=== PATIENT | male | born 1945 | race Caucasian/White ===

== ENCOUNTER 2019-05-20 08:16 | Inpatient (IN) | payer OTHER ==
[2019-05-11 11:09] LABS: ABSOLUTE NEUTROPHILS 4.4 thou/uL (1.4-8.2); BASOPHILS 1.1 % (0.0-2.0); HEMATOCRIT 39.4 % (42.0-52.0); HEMOGLOBIN 13.2 gm/dL (14.0-18.0); LYMPHOCYTES 15.7 % (24.0-44.0); MCH 32.3 pg (26.0-34.0); MCHC 33.6 g/dL (28.0-37.0); MCV 96.2 fL (80.0-100.0); MONOCYTES 9.4 % (1.0-8.0); PLATELET COUNT 162 thou/uL (150-400); POLYS 69.8 % (36.0-66.0); RBC 4.09 mil/uL (4.50-6.00); RDW 14.6 % (10.5-14.5); URINE BILIRUBIN NEGATIVE (Negative); URINE BLOOD NEGATIVE (Negative); URINE CLARITY CLEAR; URINE COLOR YELLOW; URINE GLUCOSE-RANDOM* NEGATIVE (Negative); URINE KETONES NEGATIVE (Negative); URINE LEUKOCYTES-REFLEX NEGATIVE (Negative); URINE NITRITE-REFLEX NEGATIVE (Negative); URINE PROTEIN (DIPSTICK) NEGATIVE (Negative); URINE SPECIFIC GRAVITY 1.015 (1.005-1.035); URINE UROBILINOGEN 0.2 E.U./dl (0.2-1.0); WBC 6.3 thou/uL (4.0-11.0)
[2019-05-11 11:23] LABS: APTT 29.9 Seconds (24.5-32.8); INR 1.1; PROTIME 11.1 Seconds (9.3-11.4)
[2019-05-11 11:28] LABS: ALBUMIN 3.7 g/dL (3.4-5.0); CALCIUM 8.8 mg/dL (8.5-10.1); POTASSIUM 4.1 mmol/L (3.5-5.1); TOTAL BILIRUBIN 0.3 mg/dL (<0.1-1.0)
[2019-05-12 02:10] LABS: GLYCOHEMOGLOBIN (HGB A1C) 5.9 % (4.8-5.6)
[~2019-05-20] VITALS: Ht 171.7 cm; Wt 82.6 kg
[~2019-05-20 08:16] MED LIST: ACETAMINOPHEN325 M1 PO; ADULT LOW DOSE81 MG PO; ADVIL MIGRAINE200 M1 PO; ASPIR 8181 M1 PO; ASPIR 8181 MG PO; ASPIRIN EC325 M1 PO; ASPIRIN EC325 MG PO; ASPIRIN325 PO; ASPIRIN81 M2 PO; BRILINTA90 MG PO; CARVEDILOL3.125 MG PO; CARVEDILOL6.25 MG PO; COREG3.125 MG PO; COZAAR100 MG PO; CYCLOBENZAPRINE10 MG PO; DIOVAN160 MG PO; DYAZIDE 37.5-21 EACH PO; EFFIENT10 MG PO; FLOMAX0.4 MG PO; GLUCOSAMINE CO1 EACH PO; GLUCOSAMINE HC500 MG PO; GLUCOSAMINE-CH1 EA37 PO; GLUCOSAMINE1000 MG PO; IMDUR 30 MG TAB30 M1 PO; KEFLEX500 M1 PO; LIPITOR 20 MG T20 M1 PO; LOSARTAN POTAS100 MG PO; MAXZIDE-25 MG1 EACH; MAXZIDE-25 MG1 EACH PO; METFORMIN HCL500 MG PO; NITROGLYCERIN0.4 MG SUBLING; NITROQUICK0.4 MG SUBLING; NITROSTAT0.4 MG SUBLING; OMEPRAZOLE 20 M20 M1 PO; PLAVIX 75 MG TA75 M1 PO; PLAVIX 75 MG TA75 MG PO; PROSCAR 5MG TABL5 MG PO; SIMVASTATIN20 MG PO; TAMSULOSIN HCL0.4 M1 PO; TERBINAFINE HC250 MG PO; TRAMADOL 50 MG50 MG PO; TRIAMTERENE/HCT1 CA1 PO; TRIPLE FLEX CA1 EACH PO; VITAMIN B-12500 MCG PO; ZOCOR40 MG PO; ZOCOR80 MG PO
[2019-05-20] MEDS ORDERED: MAXZIDE-25 MG1 EACH PO (11:14)
[2019-05-20 11:15] VITALS: BP 110/68
[2019-05-20] MEDS ORDERED: TERBINAFINE HC250 MG (11:36)
[2019-05-20 12:42] LABS: HEMATOCRIT 37.6 % (42.0-52.0); HEMOGLOBIN 12.6 gm/dL (14.0-18.0); MCH 32.1 pg (26.0-34.0); MCHC 33.5 g/dL (28.0-37.0); MCV 95.7 fL (80.0-100.0); RBC 3.92 mil/uL (4.50-6.00); RDW 14.4 % (10.5-14.5); WBC 5.6 thou/uL (4.0-11.0)
[2019-05-20 12:49] LABS: CALCIUM 8.9 mg/dL (8.5-10.1); POTASSIUM 3.8 mmol/L (3.5-5.1)
[2019-05-20 15:45] VITALS: BP 102/62
--- NOTE | 2019-05-20 16:51 | NUR ---
ASSUMED CARE AT 0700, SHIFT ASSESSMENT DONE, MEDS GIVEN, VSS. DENIES PAIN, NAUSEA, VOMITING. UP AD VIOLET, ROOM AIR, NSR. ON NITRO AND INTEGRALIN DRIP. WILL CONTINUE TO ASSESS AND ASSIST WITH ADLs NEEDED.
[2019-05-20 20:00] VITALS: BP 95/57
[2019-05-20 20:17] VITALS: BP 95/57
[2019-05-21] VITALS (7 sets, daily range): BP systolic 94–109; BP diastolic 49–68
--- NOTE | 2019-05-21 04:57 | NUR ---
pt resting quietly in room thru the noc, spouse at bedside offering support, vss, integrillin and ntg gtts infusing, prn pain med given for c/o craig, will con't to monitor per ppoc.
[2019-05-21 06:06] LABS: HEMATOCRIT 36.3 % (42.0-52.0); HEMOGLOBIN 12.4 gm/dL (14.0-18.0); MCH 32.5 pg (26.0-34.0); MCHC 34.2 g/dL (28.0-37.0); MCV 95.2 fL (80.0-100.0); RBC 3.82 mil/uL (4.50-6.00); RDW 14.1 % (10.5-14.5); WBC 6.6 thou/uL (4.0-11.0)
[2019-05-21 06:16] LABS: CALCIUM 8.8 mg/dL (8.5-10.1); CREATININE 1.1 mg/dL (0.7-1.3); POTASSIUM 3.7 mmol/L (3.5-5.1)
--- NOTE | 2019-05-21 20:02 | NUR ---
ASSUMED CARE OF PATIENT AT 0700. ASSESSMENTS COMPLETED. PATIENT ON INTEGRILIN AND NITRO DRIPS CONTINUOUSLY. BLOOD SUGAR CHECKED AC&HS WITH OUT INSULIN COVERAGE NEEDED. PATIENT AMBULATING THE UNIT WITH HIS AND ANTICIPATING CABG ON WEDNESDAY. PATIENT TO CONTINUE WITH POC.
[2019-05-22] VITALS (9 sets, daily range): BP systolic 84–105; BP diastolic 50–63
--- NOTE | 2019-05-22 04:46 | NUR ---
ASSUME CARE 1899. PT/VITALS STABLE. INTERMITENT BACK AND CHEST PAIN RATED 3/10. UP AD VIOLET. ADEQUATE REST NOTED. SB WITH HR IN 40s AND 50s A;; NIGHT. PT ASSYMPTOMATIC. PROGRRESSING WELL WITH POC. PLAN IS CABG ON WEDNESDAY. PT ON INTEGRELIN AND NIRO DRIP. NITRO TITRATED PER BP AND TURNED OFF AT SOME POINT DUE TO LOW BP. WILL CONTINUE TO MONITOR AND FOLLOW WITH POC
--- NOTE | 2019-05-22 08:01 | NUR ---
0500: STATED CHEST PAIN. DENIES ANY TIGHTNESS OR SHORTNESS OF AIR. NITROGLYCERINE DRIP RESTARTRED AT 10ML/HR AFTER ENSURNG BP WAS NOT TOO LOW. PT PLACED ON 2LNC AND FURTHER BUMPED UP TO 3LNC DUE TO CONTINUOUS CHEST PAIN. PT STATES PAIN RADIATING TO JAWS. VITALS RECHECKED WITH SYTOLIC AT A 100. MAP AT 74. NITRO INCREASED TO 15ML/HR. INTEGRELIN DRIP RUNNING CONTINUOUSLY.MORPHINE 2MG GIVEN. PT STATES PAIN IS EASING OFF. ENCOURAED TO REPORT IF PAIN GETS WORSE OR DOESN'T STOP. REPORT PASSED TO DAY NURSE WITH ADVICE TO CONTINUE CHECKING ON BP AND TITRATING NTRO DRIP. PT SEEMS STABLE AT TIME OF SHIFT CHANGE REPORT AND STATED PAIN SEEMS TO BE "IN THE BACKGROUND NOW". WILL CONTINUE TO MONITOR AND FOLLOW WIIHT POC
--- NOTE | 2019-05-22 14:36 | NUR ---
met with patient and at bedside. 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 patient resides with in home all needs on one level. he has 1-2 steps to enter home. 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 Patient and both drive. PCP is Dr Linnea Ramírez from [facility]. [facility] following.
--- NOTE | 2019-05-22 17:48 | NUR ---
ASSUMED PT CARE AT APPROXIMATELY 0700. PT A&O X4. ASSESSMENT CHARTED. FALL PRECAUTIONS IN PLACE. PT HAS HAD INTERMITTENT CHEST PAIN AND AN INTERMITTENT HEADACHE DURING SHIFT. PT RECEIVED PRN ANALGESIC FOR HEADACHE. PT'S PAIN DECREASED AFTER ANALGESIC. PT ON A NITRO DRIP FOR CHEST PAIN. PT HAD INTERMITTENT HYPOTENSION DUE TO NITRO DRIP. INFORMED DR. AND HE ORDERED IV FLUIDS. PT'S BP IS STABLE SINCE STARTING IV FLUIDS. PT WAS NOT SYMPTOMATIC WHEN HAVING A LOW BP. PT NPO AT MIDNIGHT TONIGHT. PT WILL BE HAVING A CABG PROCEDURE TOMORROW. PT'S CONSENT FORMS SIGNED. PT DENIED HAVING QUESTIONS REGARDING CONSENT FORMS. AT BEDSIDE. FAMILY & FRIENDS VISITED PT. PT STABLE WITH O2 SAT, O2 NOT NEEDED AT THIS TIME. PT STEADY AND INDEPENDENT WHEN WALKING, ASSISTANCE NEEDED FOR IV POLE. PT VITALS CURRENTLY STABLE. PT'S BLOOD SUGAR STABLE.
[2019-05-23] VITALS (13 sets, daily range): BP systolic 85–135; BP diastolic 41–69
--- NOTE | 2019-05-23 04:24 | NUR ---
ASSESSMENT CHARTED. VSS. NITRO PER PROTOCOL. INTEGRILIN STOPPED PER ORDERS. X2 HIBA CLEANSE. PRE OP CHECKLIST. PLAN FOR OPEN HEART THIS AM. FAMILY AT BEDSIDE.
[2019-05-23 05:24] LABS: ABSOLUTE NEUTROPHILS 4.4 thou/uL (1.4-8.2); BASOPHILS 1.2 % (0.0-2.0); EOSINOPHILS 5.4 % (0.0-3.0); HEMATOCRIT 37.4 % (42.0-52.0); HEMOGLOBIN 12.6 gm/dL (14.0-18.0); LYMPHOCYTES 17.7 % (24.0-44.0); MCH 32.3 pg (26.0-34.0); MCHC 33.6 g/dL (28.0-37.0); MCV 96.1 fL (80.0-100.0); MONOCYTES 9.5 % (1.0-8.0); PLATELET COUNT 143 thou/uL (150-400); POLYS 66.2 % (36.0-66.0); RBC 3.89 mil/uL (4.50-6.00); RDW 14.5 % (10.5-14.5); WBC 6.6 thou/uL (4.0-11.0)
--- NOTE | 2019-05-23 07:23 | 2DMMODE ---
[facility] [address] [place] [address] 2 D/M-MODE ECHOCARDIOGRAM Name: DIANA MOREAU PASTORA Room #: 205-P ADM IN M.R.#: [id number] Admission: 05/20/19 Attend Phys: Rajendra Justin MD Discharge: Date of : 47 Date of Service: 05/23/19 0722 Report #: [id number] THIS REPORT FOR: //name// APPROVED REPORT Study performed: 05/22/2019 10:53:36 EXAM: Comprehensive 2D, Doppler, and color-flow Echocardiogram Patient Location: Bedside Room #: 205 Status: routine BSA: 1.89 HR: 57 bpm BP: 105/63 mmHg Rhythm: Bradycardia Other Information Study Quality: Adequate Indications Diabetes CAD Chest Pain Hypertension/HDD Pre-op CABG 2D Dimensions RVDd: 30.78 mm IVSd: 13.85 (7-11mm) LVOT Diam: 19.58 (18-24mm) LVDd: 37.49 mm PWd: 13.64 (7-11mm) Ascending Ao: 27.48 (22-36mm) LVDs: 24.34 (25-40mm) Aortic Root: 30.68 mm IVC: 16.00 mm Volumes Left Atrial Volume (Systole) Single Plane 4CH: 58.60 mL Single Plane 2CH: 53.34 mL LA ESV Index: 33.00 mL/m2 Aortic Valve AoV Peak Jose David.: 1.16 m/s AO Peak Gr.: 5.41 mmHg LVOT Max P.09 mmHg LVOT Max V: 0.88 m/s NIKKI Vmax: 2.28 cm2 [facility] [address] [address] 2 D/M-MODE ECHOCARDIOGRAM Name: DIANA MOREAU Room #: 205-P [facility] IN [facility].#: [id number] Admission: 05/20/19 Attend Phys: Rajendra Justin MD Discharge: Date of : 47 Date of Service: 05/23/19 0722 Report #: [id number] Mitral Valve E/A Ratio: 0.8 MV Decel. Time: 337.00 ms MV E Max Jose David.: 0.42 m/s MV A Jose David.: 0.56 m/s MV PHT: 97.73 ms IVRT: 133.79 ms Pulmonary Valve PV Peak Jose David.: 0.90 m/s PV Peak Gr.: 3.23 mmHg Pulmonary Vein P Vein S: 0.42 m/s P Vein A: 0.27 m/s P Vein D: 0.30 m/s P Vein A Dur.: 184.5 msec P Vein S/D Ratio: 1.40 Tricuspid Valve TR Peak Jose David.: 2.09 m/s TR Peak Gr.: 17.52 mmHg PA Pressure: 23.00 mmHg Left Ventricle The left ventricle is normal size. mild inferior hypokinesis Mild concentric left ventricular hypertrophy. The left ventricular systolic function is normal. The left ventricular ejection fraction is within the normal range. LVEF is 50-55%. Grade I - abnormal relaxation pattern. Right Ventricle The right ventricle is normal size. The right ventricular systolic function is normal. Atria Left atrium is mildly dilated. Right atrium is at the upper limits of normal. Aortic Valve The aortic valve is normal in structure. No aortic regurgitation is present. There is no aortic valvular stenosis. Mitral Valve The mitral valve is normal in structure. There is no mitral valve regurgitation noted. No evidence of mitral valve stenosis. Tricuspid Valve The tricuspid valve is normal in structure. There is trace to [facility] [address] [place] [address] 2 D/M-MODE ECHOCARDIOGRAM Name: DIANA MOREAU [place] Room #: [address] [place] [address] IN M.R.#: [id number] Admission: 05/20/19 Attend Phys: Rajendra Justin MD Discharge: Date of : 47 Date of Service: 05/23/19 0722 Report #: [id number] tricuspid regurgitation. Estimated PAP 23 mmHg. There is no pulmonary hypertension. Pulmonic Valve Pulmonic valve is not well visualized. There is no pulmonic valvular regurgitation. Great Vessels The aortic root is normal in size. IVC is normal in size and collapses >50% with inspiration. Pericardium There is no pericardial effusion. <Conclusion> Mild concentric left ventricular hypertrophy. LVEF is 50-55%. Left atrium is mildly dilated. <ELECTRONICALLY SIGNED> By: Norberto Lundberg MD, FACC 05/23/19721 1 1 Norberto Lundberg MD, FACC /INF
[2019-05-23 11:37] LABS: HEMATOCRIT 21.3 % (42.0-52.0); MCH 32.6 pg (26.0-34.0); MCHC 34.2 g/dL (28.0-37.0); MCV 95.3 fL (80.0-100.0); RBC 2.24 mil/uL (4.50-6.00); RDW 14.3 % (10.5-14.5); WBC 8.7 thou/uL (4.0-11.0)
[2019-05-23 11:42] LABS: HEMOGLOBIN 7.3 gm/dL (14.0-18.0)
[2019-05-23 11:56] LABS: PROTIME 16.7 Seconds (9.3-11.4)
[2019-05-23 11:57] LABS: INR 1.6
[2019-05-23 12:53] LABS: HEMATOCRIT 22.1 % (42.0-52.0); MCH 32.4 pg (26.0-34.0); MCHC 34.5 g/dL (28.0-37.0); MCV 93.9 fL (80.0-100.0); RBC 2.35 mil/uL (4.50-6.00); RDW 14.2 % (10.5-14.5); WBC 9.7 thou/uL (4.0-11.0)
[2019-05-23 12:58] LABS: HEMOGLOBIN 7.6 gm/dL (14.0-18.0)
[2019-05-23 13:00] LABS: POC BE 0 mmol/L (-2.0 to +3.0); POC GLUCOSE 141 mg/dL (70-99); POC HCO3 24.1 mmol/L (22.0-26.0); POC HEMOGLOBIN 7.5 g/dL (14.0-18.0); POC POTASSIUM 3.5 mmol/L (3.5-5.1); POC SODIUM 140 mmol/L (136-145); POC pCO2 34.4 mmHg (35.0-45.0); POC pH 7.454 (7.360-7.450)
[2019-05-23 13:00] LABS: POC BE 1 mmol/L (-2.0 to +3.0); POC CA IONIZED 4.5 mg/dL (4.5-5.3); POC GLUCOSE 131 mg/dL (70-99); POC HEMOGLOBIN 7.8 g/dL (14.0-18.0); POC POTASSIUM 4.2 mmol/L (3.5-5.1); POC SODIUM 137 mmol/L (136-145); POC pCO2 50.5 mmHg (35.0-45.0); POC pH 7.337 (7.360-7.450)
[2019-05-23 13:00] LABS: POC BE -1 mmol/L (-2.0 to +3.0); POC CA IONIZED 4.4 mg/dL (4.5-5.3); POC GLUCOSE 125 mg/dL (70-99); POC HCO3 24.7 mmol/L (22.0-26.0); POC HEMOGLOBIN 8.2 g/dL (14.0-18.0); POC POTASSIUM 4.1 mmol/L (3.5-5.1); POC SODIUM 138 mmol/L (136-145); POC pCO2 43.9 mmHg (35.0-45.0); POC pH 7.358 (7.360-7.450)
[2019-05-23 13:00] LABS: POC BE 2 mmol/L (-2.0 to +3.0); POC CA IONIZED 5.2 mg/dL (4.5-5.3); POC GLUCOSE 128 mg/dL (70-99); POC HCO3 25.7 mmol/L (22.0-26.0); POC HEMOGLOBIN 7.5 g/dL (14.0-18.0); POC POTASSIUM 3.5 mmol/L (3.5-5.1); POC SODIUM 139 mmol/L (136-145); POC pCO2 36.7 mmHg (35.0-45.0); POC pH 7.453 (7.360-7.450)
[2019-05-23 13:00] LABS: POC BE 3 mmol/L (-2.0 to +3.0); POC CA IONIZED 4.6 mg/dL (4.5-5.3); POC GLUCOSE 135 mg/dL (70-99); POC HCO3 26.9 mmol/L (22.0-26.0); POC HEMOGLOBIN 10.2 g/dL (14.0-18.0); POC POTASSIUM 3.8 mmol/L (3.5-5.1); POC SODIUM 139 mmol/L (136-145); POC pH 7.482 (7.360-7.450)
[2019-05-23 13:00] LABS: POC BE 4 mmol/L (-2.0 to +3.0); POC CA IONIZED 4.6 mg/dL (4.5-5.3); POC GLUCOSE 104 mg/dL (70-99); POC HCO3 27.7 mmol/L (22.0-26.0); POC HEMOGLOBIN 10.5 g/dL (14.0-18.0); POC SODIUM 139 mmol/L (136-145); POC pCO2 36.6 mmHg (35.0-45.0); POC pH 7.486 (7.360-7.450)
[2019-05-23 13:09] LABS: APTT 33.6 Seconds (24.5-32.8); FIBRINOGEN 220.1 mg/dL (210-360); INR 1.3
[2019-05-23 13:12] LABS: PROTIME 13.8 Seconds (9.3-11.4)
[2019-05-23 13:46] LABS: BE(vivo) -4.2 mmol/L (-2 to +3); HCO3 19.8 mmol/L (22.0-26.0); PCO2 32.1 mmHg (35.0-45.0); PO2 136.9 mmHg (80.0-100.0); pH 7.409 (7.360-7.450); sO2 98.8 % (92.0-98.0)
[2019-05-23 13:46] LABS: RBC 1.98 mil/uL (4.50-6.00)
[2019-05-23 13:48] LABS: MCH 31.9 pg (26.0-34.0); MCHC 33.7 g/dL (28.0-37.0); MCV 94.8 fL (80.0-100.0); RDW 14.3 % (10.5-14.5); WBC 6.2 thou/uL (4.0-11.0)
[2019-05-23 13:53] LABS: CREATININE 0.9 mg/dL (0.7-1.3); POTASSIUM 3.5 mmol/L (3.5-5.1)
[2019-05-23 13:58] LABS: HEMATOCRIT 18.7 % (42.0-52.0); HEMOGLOBIN 6.3 gm/dL (14.0-18.0)
[2019-05-23 14:01] LABS: APTT 32.2 Seconds (24.5-32.8); INR 1.2; PROTIME 12.9 Seconds (9.3-11.4)
--- NOTE | 2019-05-23 15:32 | NUR ---
1335-FROM O.R. W OPEN HEART TEAM IN ATTENDANCE.SEE [facility] FOR VS,GTT TITRATIONS,SIG EVENTS, HRLY OUTOUTS.--VW 1350- IN.--VW WHIT BLOOD PRODUCTS.FAMILY ALL IN,UPDATED,DISCUSSED POC,ICU RULES.--VW
--- NOTE | 2019-05-23 17:24 | EKG ---
[place] [address] [address] [place] [address] ELECTROCARDIOGRAM REPORT Name: DIANA MOREAU Room #: 238-P ADM IN M.R.#: [id number] Admission: 05/20/19 Attend Phys: Rajendra Justin MD Discharge: Date of : 47 Report #: [id number] THIS REPORT FOR: //name// [facility] Test Date: 2019-05-22 Test Time: 15:59:52 Pat Name: DIANA MOREAU Department: Room: 238 Gender: M Application Technical Designer: Margi DOCKERY : 1945 Requested By: Michael Tillman Order Number: [id number] MD: Javy Mccabe Measurements Intervals [place] Rate: 59 P: 39 NV: 223 QRS: 26 QRSD: 92 T: -6 QT: 440 QTc: 436 Interpretive Statements Sinus bradycardia Prolonged NV interval Baseline wander in lead(s) V2 Compared to ECG 02/16/2014 02:31:14 First degree AV block now present Electronically Signed On 05-23-2019 17:23:44 CDT by Javy Mccabe [email or web address] <ELECTRONICALLY SIGNED> By: Javy Mccabe MD, [facility] 05/23/19 1723 1559 1559 Javy Mccabe MD, [facility] /EPI
--- NOTE | 2019-05-23 17:33 | EKG ---
[place] [address] [facility] [place] [address] ELECTROCARDIOGRAM REPORT Name: DIANA MOREAU Room #: 238-P ADM IN M.R.#: [id number] Admission: 05/20/19 Attend Phys: Rajendra Justin MD Discharge: Date of : 47 Report #: [id number] THIS REPORT FOR: //name// [facility] Test Date: 2019-05-23 Test Time: 15:05:58 Pat Name: DIANA MOREAU Department: Room: 238 P Gender: M Base Wad Operator Adjuster: Margi DOCKERY : 1945 Requested By: Michael Tillman Order Number: [id number] MD: Javy Mccabe Measurements Intervals [place] Rate: 77 P: 48 HI: 161 QRS: 32 QRSD: 96 T: 26 QT: 403 QTc: 457 Interpretive Statements Sinus rhythm Abnormal R-wave progression, early transition nonspecific ST segment abnormality Compared to ECG 02/16/2014 02:31:14 No significant changes Electronically Signed On 05-23-2019 17:32:46 CDT by Javy Mccabe [email or web address] <ELECTRONICALLY SIGNED> By: Javy Mccabe MD, [facility] 05/23/19 1732 1505 1505 Javy Mccabe MD, [facility] /EPI
--- NOTE | 2019-05-23 18:24 | NUR ---
REPEAT HGB 9.2. PT SLEEPING SINCE FENTANYL EARLIER. WILL LET PROCEED W CPAP TRIAL & EXTUBATION.--VW
[2019-05-23 21:26] LABS: BE(vivo) -5.6 mmol/L (-2 to +3); HCO3 19.1 mmol/L (22.0-26.0); PCO2 34.2 mmHg (35.0-45.0); PO2 95.3 mmHg (80.0-100.0); pH 7.365 (7.360-7.450); sO2 97.1 % (92.0-98.0)
[2019-05-23 22:01] LABS: BE(vivo) -4.6 mmol/L (-2 to +3); HCO3 20.7 mmol/L (22.0-26.0); PCO2 39.2 mmHg (35.0-45.0); pH 7.341 (7.360-7.450); sO2 96.4 % (92.0-98.0)
[2019-05-23 22:47] LABS: BE(vivo) -4.6 mmol/L (-2 to +3); HCO3 20.4 mmol/L (22.0-26.0); PCO2 37.4 mmHg (35.0-45.0); PO2 101.7 mmHg (80.0-100.0); pH 7.355 (7.360-7.450); sO2 97.5 % (92.0-98.0)
[2019-05-24 06:27] LABS: HEMATOCRIT 24.4 % (42.0-52.0); HEMOGLOBIN 8.4 gm/dL (14.0-18.0); MCHC 34.4 g/dL (28.0-37.0); RBC 2.62 mil/uL (4.50-6.00); RDW 15.1 % (10.5-14.5); WBC 7.3 thou/uL (4.0-11.0)
[2019-05-24 06:41] LABS: CREATININE 1.2 mg/dL (0.7-1.3); MAGNESIUM 1.7 mg/dL (1.8-2.4); POTASSIUM 4.3 mmol/L (3.5-5.1)
--- NOTE | 2019-05-24 06:56 | NUR ---
Pt progressing well with stable VS and adequate SpO2 on 2L of O2. PRN fentanyl and hydrocodones given for c/o chest "soreness" with desired effects achieved. Chest tube drainage minimal for shift and urine output remains adequate. Pt taking PO fluids with no c/o nausea. Am lab results noted, continue with POC.
[2019-05-24 07:38] VITALS: BP 101/51
--- NOTE | 2019-05-24 09:10 | NUR ---
Nutrition: pt POD 1 CABG x 2. Consult received to address education needs, will followup when out of ICU and closer to D/C.
[2019-05-24 13:01] VITALS: BP 94/47
--- NOTE | 2019-05-24 13:22 | EKG ---
[address] [place] [address] ELECTROCARDIOGRAM REPORT Name: DIANA MOREAU Room #: 238-P ADM IN M.R.#: [id number] Admission: 05/20/19 Attend Phys: Rajendra Justin MD Discharge: Date of : 47 Report #: [id number] THIS REPORT FOR: //name// [facility] Test Date: 2019-05-24 Test Time: 07:10:05 Pat Name: DIANA MOREAU Department: Room: 238 P Gender: M Blind Hanger: GLEN : 1945 Requested By: Michael Tillman Order Number: [id number] MD: Javy Mccabe Measurements Intervals [place] Rate: 85 P: 24 WV: 173 QRS: 12 QRSD: 63 T: -24 QT: 394 QTc: 469 Interpretive Statements Sinus rhythm Abnormal R-wave progression, early transition Borderline T abnormalities, diffuse leads Borderline ST elevation, lateral leads Compared to ECG 05/23/2019 15:05:58 T-wave abnormality now present Electronically Signed On 05-24-2019 13:22:25 CDT by Javy Mccabe [email or web address] <ELECTRONICALLY SIGNED> By: Javy Mccabe MD, [facility] 05/24/19 1322 0710 0710 Javy Mccabe MD, [facility] /EPI
--- NOTE | 2019-05-24 14:17 | O ---
[facility] [place] [address] [address] OPERATIVE REPORT Name: DIANA MOREAU Room #: 238-P ADM IN M.R.#: [id number] Admission: 05/20/19 Attend Phys: Rajendra Justin MD Discharge: Date of : 47 Report #: [id number] THIS REPORT FOR: //name// CC: Linnea Jacob DATE OF SERVICE: 05/23/2019 PREOPERATIVE DIAGNOSIS: Coronary artery disease. POSTOPERATIVE DIAGNOSIS: Coronary artery disease. OPERATION: Coronary artery bypass x 2 including left internal mammary artery to left anterior descending artery and saphenous vein to right coronary artery. SURGEON: Rajendra Justin MD SINGEING TORCH OPERATOR: LEMUEL Diez. ANESTHESIA: General. INDICATIONS: The patient is a 73-year-old seen for Dr. Jacob. The patient has had multiple stents in the past and is symptomatic with restenosis of an extensively stented right coronary artery. There is also modest stenosis in the LAD. Left ventricular function satisfactory. The patient has been hospital on an Integrilin bridge as we needed to stop the Eliquis prior to surgery. FINDINGS AND TECHNIQUE: After general anesthesia was established, saphenous vein was harvested using an endoscopic approach and prepared for use as a conduit. Exposure was obtained through median sternotomy. Left internal mammary artery was harvested. Pericardial well was made. Cannulation sutures were placed. Heparin was given. Aorta was cannulated. Right atrium was cannulated. Cardioplegia needle was positioned in the aortic root. Retrograde cardioplegic catheter was placed in coronary sinus. Cardiopulmonary bypass was established. The aorta was cross clamped. Antegrade and retrograde cardioplegia were given. Ice was poured into the pericardial well. The heart was stopped. During electromechanical arrest, the distal anastomoses were performed and end-to-side anastomosis was made between vein and the right coronary artery. This was a 2-mm vessel. Cold cardioplegia was given. The left internal mammary artery was sewn in end-to-side fashion to left anterior descending artery. Patency of this vessel was checked with the temperature technique. Cold cardioplegia was given. One proximal anastomosis was performed and this was [facility] [address] [place] [address] OPERATIVE REPORT Name: DIANA MOREAU [place] Room #: 238-P [facility] IN M.R.#: [id number] Admission: 05/20/19 Attend Phys: Rajendra Justin MD Discharge: Date of : 47 Report #: [id number] complete, warm retrograde cardioplegia was given followed by warm continuous blood to the coronary sinus. When this infusion was complete, the crossclamp was removed, de-airing maneuvers were performed. The anastomoses were inspected and found to be satisfactory. As the patient warmed, nice cardiac activity resumed, chest tubes and pacing wires were placed, a marker was placed around the proximal anastomosis. When the patient was warmed, he was weaned from cardiopulmonary bypass. Venous cannula was removed. Protamine was given, the aortic cannula was removed. Flows were measured in the bypass grafts. The patient had an obvious coagulopathy likely related to the antiplatelet drugs given, multiple platelet units were given empirically and FFP and protamine and cells were given on the basis of our laboratory tests. Ultimately, the coagulopathies were subsided and we were able to close the chest. The patient was taken to the Intensive Care Unit in satisfactory condition. All counts reported as correct. <ELECTRONICALLY SIGNED> By: Rajendra Justin MD 05/24/19 1417 0831 0916 Rajendra Justin MD /nt
[2019-05-24 15:07] VITALS: BP 89/51
[2019-05-24 16:00] VITALS: BP 91/52
--- NOTE | 2019-05-24 16:40 | NUR ---
PATIENT SAT IN CHAIR UNTIL THIS AFTERNOON. HE WORKED WITH PT TO GET BACK TO BED. THEN RN DISCONTINUED CHEST TUBES DOCUMENTED. ATRIUM CHANGED TO SINGLE CHAMBER. OUTPUT FROM CHEST TUBES DOCUMENTED. NURSE TO GET HIM UP TO CHAIR FOR SUPPER. ASSESSMENTS AND VITAL SIGNS DOCUMENTED. PACER WIRES CAPPED. LORETO WRAP REMOVED, SCD PLACED. PLEURAL CHEST TUBE REMAINS INTACT. PATIENT PLACED ON ROOM AIR, LAST O2 SAT >95% ON ROOM AIR. 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 PT TO GET HIM UP TO THE CHAIR FOR SUPPER. NURSE TO CONTINUE TO MONITOR PATIENT STATUS. PLAN OF CARE IS TO CONTINUE TO PROGESS ACTIVITY LEVEL, MONITOR INTAKE AND OUTPUT, MONITOR PAIN LEVEL, WORK WITH INCENTIVE SPIROMETER, AND PERFORM ASSESSMENTS. PATIENT PROGRESSING TOWARDS PLAN OF CARE.
[2019-05-24 19:53] VITALS: BP 93/52
[2019-05-25] VITALS (21 sets, daily range): BP systolic 85–112; BP diastolic 47–65
--- NOTE | 2019-05-25 05:22 | NUR ---
Received report from KELLI Morrow and assumed patient care at 1900. Patient was sitting up in the chair upon entering the room. Bathed patient with chlorhexidine wipes and assisted patient back to bed. Patient is very pleasant and is AAOx4 and on room air. Patient had minimal complaints of pain until around 2 am. Patient medicated for pain. VS remained stable during this shift and no acute events occurred. Hourly rounding completed and assessments charted per ICU policy.
[2019-05-25 06:07] LABS: HEMATOCRIT 21.8 % (42.0-52.0); HEMOGLOBIN 7.4 gm/dL (14.0-18.0); MCV 94.1 fL (80.0-100.0); RBC 2.32 mil/uL (4.50-6.00); RDW 15.7 % (10.5-14.5); WBC 4.6 thou/uL (4.0-11.0)
[2019-05-25 06:17] LABS: CALCIUM 8.4 mg/dL (8.5-10.1); CREATININE 1.1 mg/dL (0.7-1.3); POTASSIUM 4.2 mmol/L (3.5-5.1)
--- NOTE | 2019-05-25 14:52 | HC ---
[facility] [place] [address] [place] [address] CONSULTATION Name: DIANA MOREAU Room #: 238-P ADM IN M.R.#: [id number] Admission: 05/20/19 Attend Phys: Rajendra Justin MD Discharge: Date of : 46 Report #: [id number] THIS REPORT FOR: //name// CC: Linnea Jacob HISTORY OF PRESENT ILLNESS: The patient is a 73-year-old white male who I was asked to see in the hospital today after he had coronary artery bypass surgery. The patient has an extensive past medical history. He has had multiple coronary artery stents placed. The first is actually placed at [facility] in 2006. Recently, he has been followed by my partner Dr. Jacob. He has had stents placed, both at [facility], [facility] and [facility]. I actually performed repeat cardiac catheterization in December of this year at [facility] at which time he was found to have no significant restenosis, stents in the LAD and circumflex but an 80% restenosis of stent in the right coronary artery, placed a new drug-eluting stent. Left ventriculography was not performed at that time. However, he then re-presented in March with complete occlusion of the right coronary artery. Dr. Jacob placed a new drug-eluting stent in the right coronary artery. Dr. Jacob just recently performed repeat cardiac catheterization 3 weeks ago at [facility]. He was found to have 40% restenosis stent in the LAD. The circumflex had no significant restenosis. The right coronary artery again had a 90% restenosis. Ejection fraction 60%. He then attempted placing a new stent in the right coronary artery. He was able to place a stent, but there was residual narrowing. He continued to have recurrent chest discomfort. Dr. Jacob referred him to Dr. Rajendra Blas. He was admitted to [facility] 5 days ago to be started on Integrilin while discontinuing Effient. Yesterday, he was taken to the operating room and underwent multivessel bypass surgery by Dr. Justin. He was extubated last night. Today, the patient is sore, but has no significant complaints of nausea, shortness of breath. I was asked to see him postoperatively for cardiac consultation. PAST MEDICAL HISTORY: He has had back surgery, carpal tunnel surgery, knee surgery, rotator cuff surgery. He has hypertension, hyperlipidemia. CURRENT MEDICATIONS: Consist of aspirin, Proscar, losartan. He has been taking Effient but was discontinued a week ago. He is on Zocor, Flomax, Dyazide. ALLERGIES: HE HAS AN INTOLERANCE TO LISINOPRIL. FAMILY HISTORY: He had 2 sisters with BiPAP surgery. SOCIAL HISTORY: He is . He and his live in [place], [place]. 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 Quit smoking years ago. Drinks alcohol only occasionally. [facility] [address] [place] [address] CONSULTATION Name: DIANA MOREAU Room #: 238-P [facility] IN Margi.Claudy#: [id number] Admission: 05/20/19 Attend Phys: Rajendra Justin MD Discharge: Date of : 47 Report #: [id number] REVIEW OF SYSTEMS: No history of stroke, asthma, peptic ulcer disease, liver disease, kidney disease, cancer, psychiatric illness, chronic skin condition. PHYSICAL EXAMINATION: GENERAL: Elderly male lying in bed. He appears in no distress. VITAL SIGNS: Blood pressure 120/70, pulse 70. HEENT: He is anicteric. Conjunctivae are pink. Mucous members are moist. NECK: Veins do not appear distended. CHEST: Clear to auscultation. CARDIOVASCULAR: Regular rate and rhythm. ABDOMEN: Soft. EXTREMITIES: No edema. SKIN: Cool and dry. NEUROLOGIC: Nonfocal. His ECG postoperatively showed a sinus rhythm, nonspecific T-wave changes. IMPRESSION AND RECOMMENDATIONS: 1. Coronary artery disease, status post multivessel bypass surgery. Because of his recent stent, I would resume Effient and aspirin. 2. Hypertension. The patient has been on ARB. 3. Hyperlipidemia. The patient has been on a statin drug. 4. Previous tobacco abuse. <ELECTRONICALLY SIGNED> By: Norberto Lundberg MD, FACC 05/25/19 1452 0715 2114 Norberto Lundberg MD, FACC /nt
--- NOTE | 2019-05-25 15:24 | NUR ---
SW reviewed chart and spoke with hospitalist. Pt is POD #2 CABG. Pt is progressing well towards goals for discharge. Pt may transfer out of ICU later today. SW met with pt and at bedside to discuss discharge plan. Pt states his goal is to outpatient cardiac rehab at [facility]. SW provided list of in-network HH providers, should pt need HH initially. Pt's PCP is Dr. Linnea Ramírez. [facility] is following to assist as needed with discharge planning.
--- NOTE | 2019-05-25 18:21 | NUR ---
NURSE TRANSFERED PATIENT TO CCU VIA WHEELCHAIR. ASSESSMENTS AND VITAL SIGNS DOCUMENTED. CHEST TUBE HAD OUTPUT DOCUMENTED. PAIN MANAGED WITH ORAL MEDICATIONS. ARTERIAL LINE WAS DISCONTINUED PRIOR TO HIS TRANSFER, WITHOUT COMPLICATIONS. HIS INTRODUCER WAS DISCONTINUED AFTER BREAKFAST WITHOUT COMPLICATIONS, AND DOCUMENTED.
--- NOTE | 2019-05-25 18:29 | NUR ---
PT TRANSFERED FROM ICU. ALERT AND ORIENTED. STERNUM DRESSING C/D/I WITH WOUND VAC IN PLACE. CHEST TUBE PATENT. GRIFFITH TO DDD WITH CLEAR YELLOW URINE. PT REPORT STERNUM PAIN WITH MOVEMENT BUT DENIES THE NEED FOR PAIN MED. UP IN THE CHAIR. NO CARDIAC OR RESPIRATORY ISSUES NOTED. WILL CONTINUE TO MONITOR.
[2019-05-26 00:16] VITALS: BP 100/56
[2019-05-26 04:18] VITALS: BP 98/53
[2019-05-26 05:08] LABS: GLYCOHEMOGLOBIN (HGB A1C) 5.9 % (4.8-5.6)
--- NOTE | 2019-05-26 05:12 | NUR ---
ASSUMED CARE OF PT. AT 1900. PT. IS ALERT AND ORIENTED X4. PT. ONLY GIVEN PAIN MEDICATION X1. DENIES N/V. NSR ON MONITOR. SLEPT THROUGH THE NIGHT. UP ONE TIME TO THE BEDSIDE COMMODE, NO BM. ADEQUATE URINARY OUTPUT. FLUID RESTRICTION MAINTAINED. IS AND TURN, COUGH, DEEP BREATHING ENCOURAGED. RAFAT DRESSING IS C/D/I AND CHEST TUBE SITE IS PATENT WITH NO AIR LEAK WITH MODERATE AMOUNT OF DRAINAGE. PT. IS PROGRESSING TOWARDS GOALS. ASSESSMENTS AND VITAL SIGNS CHARTED. WILL CONTINUE TO MONITOR.
[2019-05-26 09:57] VITALS: BP 102/61
[2019-05-26 10:35] LABS: HEMATOCRIT 22.5 % (42.0-52.0); HEMOGLOBIN 7.7 gm/dL (14.0-18.0); MCH 32.1 pg (26.0-34.0); MCV 94.4 fL (80.0-100.0); RBC 2.39 mil/uL (4.50-6.00); RDW 15.3 % (10.5-14.5); WBC 7.1 thou/uL (4.0-11.0)
[2019-05-26 14:35] VITALS: BP 95/51
--- NOTE | 2019-05-26 14:41 | NUR ---
Nutrition: pt admit S/P CABG x 2. Intake variable per but 75-100% is documented on heart healthy carb controlled diet. A1C 5.9 with good BG control. Reports stopped taking metformin. Stable weights prior to admit. Cardiac diet education complete. See education log for details. Low risk.
--- NOTE | 2019-05-26 15:26 | NUR ---
Pt is progressing postop. Chest tube in place. Dc to home with his spouse and outpt f/u anticipated once CT is dc'd. No cm interventions indicated at this time. Will follow along should dc needs arise.
--- NOTE | 2019-05-26 17:03 | NUR ---
ASSESSMENT CHARTED. PT ALERT AND ORIENTED. VSS. RECEIVED PRN PAIN MED WITH PARTIAL RELIEF. AMBUALTED NUMEROUS TIMES WITH PT AND CARDIAC REHAB NURSE. CHEST TUBES AND GRIFFITH DISCONTINUED TODAY. NO CARDIAC OR RESPIRATORY DISTRESS NOTED. WILL CONTINUE TO MONITOR.
[2019-05-26 18:06] VITALS: BP 99/52
[2019-05-26 20:00] VITALS: BP 129/56
[2019-05-27 00:15] VITALS: BP 107/55
[2019-05-27 04:00] VITALS: BP 101/55
[2019-05-27 05:15] LABS: HEMATOCRIT 20.8 % (42.0-52.0); HEMOGLOBIN 7.2 gm/dL (14.0-18.0); MCH 32.6 pg (26.0-34.0); MCHC 34.7 g/dL (28.0-37.0); RBC 2.22 mil/uL (4.50-6.00); RDW 14.9 % (10.5-14.5); WBC 7.1 thou/uL (4.0-11.0)
[2019-05-27 05:19] LABS: CALCIUM 8.5 mg/dL (8.5-10.1); POTASSIUM 4.2 mmol/L (3.5-5.1)
--- NOTE | 2019-05-27 06:06 | NUR ---
A/O X 4.UP WITH STANDBY ASSIST WITH STERNAL PRECAUTIONS OBSERVED. IS IN THE ROOM WITH THE PATIENT AND IS VERY SUPPORTIVE.PAIN WELL CONTROLLED WITH HYDROCODONE.PATIENT UNABLE TO URINATE EVEN AFTER TASMULOSIN WAS GIVEN.BLADDER SCAN SHOWED 855 CC.GRIFFITH WAS PLACED ORDERED.BEDTIME BLOOD GLUCOSE WAS 137.MONITOR SHOWS SINUS RHYTHM.WILL CONTINUE POC.
[2019-05-27 07:10] VITALS: BP 96/52
[2019-05-27 12:35] VITALS: BP 91/48
--- NOTE | 2019-05-27 15:18 | NUR ---
PT ALERT AND ORIENTED. RECEIVED PRN PAIN MED WITH PARTIAL RELIEF. RAFAT DRESSING INTACT WITH WOUND VAC. STERNUM PRECAUTION MAINTAINED. AMBULATED X2 IN THE HALLWAY WITH PHYSICAL THERAPIST. AT THE [facility]. WILL CONTINUE TO MONITOR.
[2019-05-27 16:27] VITALS: BP 93/51
[2019-05-27 19:40] VITALS: BP 88/51
--- NOTE | 2019-05-28 03:27 | NUR ---
ASSESSMENTS CHARTED. PO DAY 3. PATIENT HAD GRIFFITH RE-INSERTED DUE TO RETENTION ISSUES. RODOLFO HOSE APPLIED AND ARE IN PLACE DUE TO LOWER EXTREMITY EDEMA. PATIENT UP TO BATHROOM WITH ASSISTANCE TO THE BATHROOM TO CARE FOR HIS DENTURES. C/O PAIN IN UPPER CHEST, INCISION PAIN. PAIN MED GIVEN CHARTED. PLAN OF CARE IS TO RETURN HOME TOMORROW. FALL PRECAUTIONS ARE IN PLACE.
[2019-05-28 04:55] VITALS: BP 92/46
[2019-05-28 08:00] VITALS: BP 98/54
[2019-05-28 11:38] VITALS: BP 92/46
[2019-05-28] MEDS ORDERED: FERREX 150 PLU1 EAC1 PO (11:41)
--- NOTE | 2019-05-28 11:42 | EKG ---
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 : 1945 Requested By: Michael Tillman Order Number: [id number] MD: Evangelist Hastings Measurements Intervals [place] Rate: 72 P: 35 DC: 173 QRS: 21 QRSD: 96 T: -20 QT: 412 QTc: 451 Interpretive Statements Sinus rhythm Borderline T abnormalities, inferior leads Compared to ECG 05/24/2019 07:10:05 ST (T wave) deviation no longer present T-wave abnormality still present Electronically Signed On 05-28-2019 11:42:04 CDT by Evangelist Hastings [email or web address] <ELECTRONICALLY SIGNED> By: Evangelist Hastings MD 05/28/19 [id number] Evangelist Hastings MD /EPI
[2019-05-28] MEDS ORDERED: FLOMAX0.4 MG PO (13:24)
[2019-05-28] MEDS ORDERED: ZOCOR80 MG PO (13:24)
--- NOTE | 2019-05-28 13:36 | NUR ---
ASSESSMENT CHARTED. PT ALERT AND ORIENTED. HAD LOW BP THIS AM. DR. LOERA AWARE. SEEN BY DR. RIVAS. ORDERS GIVEN TO DISCHARGE PT TO HOME. DISCHARGE INSTRUCTIONS GIVEN TO PT AND THE . PT CONCERNED ABOUT SOME OF HIS DISCHARGE MEDICATIONS DR. MARIE, DR. LOERA, AND DR RIVAS NOTIFIED. PT LEFT THE FACILITY ACCOMPANIED BY THE .
== END 2019-05-28 13:41 | disposition home or self-care (01) | DRG 236 ==
LOC: PRE 08:16 → 2N 10:57 → PRE 14:04 → TBA 05-23 07:27 → ICU 05-23 12:02 → 2N 05-25 16:47
PROVIDERS: Hospitalist; Internal Medicine; Physician Assistant; ADMIT Surgery Vascular Surgery
PROC: 02100Z9 Bypass Coronary Artery, One Artery from Left Internal Mammary, Open Approach (ICD-10-PCS; principal; 2019-05-23)
PROC: 30233N1 Transfusion of Nonautologous Red Blood Cells into Peripheral Vein, Percutaneous Approach (ICD-10-PCS; principal; 2019-05-23)
PROC: 30233K1 Transfusion of Nonautologous Frozen Plasma into Peripheral Vein, Percutaneous Approach (ICD-10-PCS; principal; 2019-05-23)
PROC: 5A1221Z Performance of Cardiac Output, Continuous (ICD-10-PCS; principal; 2019-05-23)
PROC: 021009W Bypass Coronary Artery, One Artery from Aorta with Autologous Venous Tissue, Open Approach (ICD-10-PCS; principal; 2019-05-23)
PROC: 30233M1 Transfusion of Nonautologous Plasma Cryoprecipitate into Peripheral Vein, Percutaneous Approach (ICD-10-PCS; principal; 2019-05-23)
PROC: 30233R1 Transfusion of Nonautologous Platelets into Peripheral Vein, Percutaneous Approach (ICD-10-PCS; principal; 2019-05-23)
PROC: 06BQ4ZZ Excision of Left Saphenous Vein, Percutaneous Endoscopic Approach (ICD-10-PCS; principal; 2019-05-23)
DX: I25.10 Atherosclerotic heart disease of native coronary artery without angina pectoris (principal); I13.0 Hypertensive heart and chronic kidney disease with heart failure and stage 1 through stage 4 chronic kidney disease, or unspecified chronic kidney disease; J98.11 Atelectasis; D64.9 Anemia, unspecified; I95.9 Hypotension, unspecified; E78.5 Hyperlipidemia, unspecified; N18.2 Chronic kidney disease, stage 2 (mild); I50.9 Heart failure, unspecified; D69.6 Thrombocytopenia, unspecified; E11.22 Type 2 diabetes mellitus with diabetic chronic kidney disease; R33.9 Retention of urine, unspecified; E11.40 Type 2 diabetes mellitus with diabetic neuropathy, unspecified; N40.1 Benign prostatic hyperplasia with lower urinary tract symptoms; R33.8 Other retention of urine; I25.2 Old myocardial infarction; Z87.891 Personal history of nicotine dependence; Z95.5 Presence of coronary angioplasty implant and graft; Z79.82 Long term (current) use of aspirin; Z79.899 Other long term (current) drug therapy; Z88.8 Allergy status to other drugs, medicaments and biological substances
CPT/HCPCS: 10078; 10081; 47000; 47001; 47002; 47297; 48888; 50011; 50249; 50409; 50456; 50498; 50668; 51301; 52131; 52259; 52314; 53327; 53358; 54118; 56455; 56524; 56525; 56526; 56527; 56528; 56531; 56534; 56668; 56760; 57093; 57116; 57167; 62110; 62950; 65003; 65047; 65090; 65120; 85076